=== PATIENT | male | born 1945 | race African-American/Black ===

== ENCOUNTER 2017-11-09 00:42 | Emergency (ER) | payer OTHER ==
[~2017-11-09] VITALS: Ht 172.7 cm; Wt 79.4 kg
[~2017-11-09 00:42] MED LIST: NOHOMEMEDICATIONS
[2017-11-09 02:19] LABS: ABSOLUTE NEUTROPHILS 12.1 thou/uL (1.4-8.2); BASOPHILS 0.3 % (0.0-2.0); EOSINOPHILS 0.3 % (0.0-3.0); HEMATOCRIT 34.4 % (42.0-52.0); HEMOGLOBIN 11.2 gm/dL (14.0-18.0); LYMPHOCYTES 8.3 % (24.0-44.0); MCH 30.1 pg (26.0-34.0); MCHC 32.5 g/dL (28.0-37.0); MCV 92.5 fL (80.0-100.0); MONOCYTES 3.8 % (1.0-8.0); PLATELET COUNT 228 thou/uL (150-400); POLYS 87.3 % (36.0-66.0); RBC 3.72 mil/uL (4.50-6.00); RDW 13.2 % (10.5-14.5); WBC 13.8 thou/uL (4.0-11.0)
[2017-11-09 02:20] LABS: CALCIUM 9.1 mg/dL (8.5-10.1); CREATININE 1.9 mg/dL (0.7-1.3); POTASSIUM 4.9 mmol/L (3.5-5.1)
[2017-11-09 02:26] LABS: ALBUMIN 3.9 g/dL (3.4-5.0); APTT 24.9 Seconds (24.5-32.8); INR 1.1; PROTIME 10.8 Seconds (9.3-11.4); TOTAL BILIRUBIN 0.3 mg/dL (<0.1-1.0); TOTAL PROTEIN 7.6 g/dL (6.4-8.2)
[2017-11-09] MEDS ORDERED: ANUSOL-HC25 MG RECTAL (02:34)
[2017-11-09 03:06] VITALS: BP 156/96
== END 2017-11-09 03:07 | disposition home or self-care (01) ==
LOC: ER 00:42
PROVIDERS: Emergency Medicine
DX: K92.1 Melena (principal); I12.9 Hypertensive chronic kidney disease with stage 1 through stage 4 chronic kidney disease, or unspecified chronic kidney disease; E11.22 Type 2 diabetes mellitus with diabetic chronic kidney disease; N18.9 Chronic kidney disease, unspecified